=== PATIENT | male | born 1990 | race Caucasian/White ===

== ENCOUNTER 2022-12-05 12:37 | Emergency (ER) | payer SELFPAY ==
[2022-12-05] VITALS (9 sets, daily range): BP systolic 105–120; BP diastolic 78–87
[~2022-12-05] VITALS: Ht 182.9 cm; Wt 64.0 kg
[2022-12-05] MEDS ORDERED: METHOCARBAMOL500 MG PO (14:29)
[2022-12-05] MEDS ORDERED: LORTAB 5/3255 MG PO (14:29)
[2022-12-05] MEDS ORDERED: NAPROXEN500 MG PO (14:29)
[2022-12-05] MEDS ORDERED: MEDDOSEPAK PO (14:30)
== END 2022-12-05 14:57 | disposition home or self-care (01) | DRG 552 ==
LOC: ED 12:37
DX: M54.6 Pain in thoracic spine (principal)